=== PATIENT | male | born 1975 | race Caucasian/White ===

== ENCOUNTER → 2019-02-25 | Emergency (ER) | payer SELFPAY ==
[~2019-02-25] VITALS: Ht 172.7 cm; Wt 90.7 kg
[2019-02-26 00:08] VITALS: BP_SYST 155
== END | disposition still patient (30) ==
LOC: SED 23:40
DX: M25.521 Pain in right elbow (principal); M79.631 Pain in right forearm; Z53.21 Procedure and treatment not carried out due to patient leaving prior to being seen by health care provider; V43.52XA Car driver injured in collision with other type car in traffic accident, initial encounter; Y93.89 Activity, other specified; Y92.69 Other specified industrial and construction area as the place of occurrence of the external cause; Y99.8 Other external cause status